=== PATIENT | male | born 1965 | race Caucasian/White ===

== ENCOUNTER → 2019-11-01 | Outpatient (CLI) | payer OTHER | LOC: M.WC 08:00 | DX: E11.622 Type 2 diabetes mellitus with other skin ulcer (principal); L97.511 Non-pressure chronic ulcer of other part of right foot limited to breakdown of skin; S81.801D Unspecified open wound, right lower leg, subsequent encounter; E66.9 Obesity, unspecified; E05.90 Thyrotoxicosis, unspecified without thyrotoxic crisis or storm; F17.200 Nicotine dependence, unspecified, uncomplicated; W22.8XXD Striking against or struck by other objects, subsequent encounter ==